=== PATIENT | male | born 1990 | race Caucasian/White ===

== ENCOUNTER 2016-11-06 09:40 | Emergency (ER) | payer MEDICAID ==
[2016-11-06 10:10] VITALS: BP 119/73; PULSE 84; RESP 19; TEMP 98; O2SAT 100
--- NOTE | 2016-11-06 10:39 | ED PDOC ---
HPI: Skin/Bite Injury Time Seen by Provider: 11/06/16 10:18 Chief Complaint (Nursing): Abnormal Skin Integrity Chief Complaint (Provider): Abnormal Skin Integrity History Per: Patient History/Exam Limitations: no limitations Onset/Duration Of Symptoms: Days (x2 months) Current Symptoms Are (Timing): Still Present Additional Complaint(s): Shaid Medina is a 26 year old male with a past medical history of diabetes, hypertension, and hypercholesterolemia presenting to the ED for an evaluation of an itchy rash on his arms, abdomen, and back occurring for 2 months prior to arrival. He states he has temporary improvement with topical creams, but then symptoms returns. He denies fever or shortness of breath. PMD: Marce Sabillon MD Past Medical History Reviewed: Historical Data, Nursing Documentation, Vital Signs Vital Signs: Last Vital Signs Temp 98.0 F 11/06/16 10:07 Pulse 84 11/06/16 10:07 Resp 19 11/06/16 10:07 BP 119/73 11/06/16 10:07 Pulse Ox 100 11/06/16 10:40 - Medical History PMH: Asthma, Depression, Diabetes (type 1), Gastritis, HTN, Hypercholesterolemia , Migraine, Sexually Transmitted Disease (+ Herpes on bld test) Denies: HIV, Chronic Kidney Disease - Family History Family History: States: Unknown Family Hx - Social History Current smoker - smoking cessation education provided: No Ex-Smoker (has not smoked in the last 12 months): No Alcohol: Social Drugs: Denies - Home Medications Home Medications: Ambulatory Orders Medication Instructions Recorded Insulin Detemir [Levemir] 40 unit SC HS 01/31/14 Insulin Lispro [humALOG] 35 units SC DAILY 01/31/14 Lisinopril 5 mg PO DAILY 01/31/14 Simvastatin 20 mg PO DAILY 01/31/14 Cetirizine HCl [Zyrtec] 10 mg PO DAILY #10 capsule 11/06/16 predniSONE [predniSONE Tab] 10 mg PO TID #15 tab 11/06/16 - Allergies Allergies/Adverse Reactions: Allergies Allergy/AdvReac Type Severity Reaction Status Date / Time No Known Allergies Allergy Verified 01/31/14 18:54 Review of Systems ROS Statement: Except As Marked, All Systems Reviewed And Found Negative Constitutional: Negative for: Fever Respiratory: Negative for: Shortness of Breath Skin: Positive for: Rash (itchy rash to arms, abdomen, and back) Physical Exam - Reviewed Nursing Documentation Reviewed: Yes Vital Signs Reviewed: Yes - Physical Exam Appears: Positive for: Non-toxic, No Acute Distress Head Exam: Positive for: ATRAUMATIC, NORMOCEPHALIC Skin: Positive for: Rash (maculopapular rash involving arms and lower abdomen) Cardiovascular/Chest: Positive for: Regular Rate, Rhythm, Chest Non Tender. Negative for: Murmur Respiratory: Positive for: Normal Breath Sounds. Negative for: Respiratory Distress Gastrointestinal/Abdominal: Positive for: Normal Exam, Soft. Negative for: Tenderness Extremity: Positive for: Normal ROM. Negative for: Deformity Neurologic/Psych: Positive for: Alert, Oriented (x3) - Laboratory Results Result Diagrams: 11/06/16 10:45 11/06/16 10:45 - ECG O2 Sat by Pulse Oximetry: 100 (RA) Pulse Ox Interpretation: Normal Medical Decision Making Medical Decision Making: Time: 10:18 Impression: Rash Plan: * CMP * CBC (with differential) * HumuLIN R 6 Units SC * NS 0.9% 1,000 ml IV 250 mls/hr * Reevaluation Scribe Attestation: Documented by Shalini Odonnell, acting as a scribe for Ludwin Harvey MD. Provider Scribe Attestation: All medical record entries made by the Scribe were at my direction and personally dictated by me. I have reviewed the chart and agree that the record accurately reflects my personal performance of the history, physical exam, medical decision making, and the department course for this patient. I have also personally directed, reviewed, and agree with the discharge instructions and disposition. Disposition - Clinical Impression Clinical Impression: Dermatitis, Uncontrolled diabetes mellitus type 1 without complications - Patient ED Disposition Is Patient to be Admitted: No Counseled Patient/Family Regarding: Studies Performed, Diagnosis, Need For Followup, Rx Given - Disposition Referrals: [facility] [Outside] Disposition: Routine/Home Disposition Time: 14:05 Condition: FAIR Prescriptions: Cetirizine HCl [Zyrtec] 10 mg PO DAILY #10 capsule predniSONE [predniSONE Tab] 10 mg PO TID #15 tab Instructions: Dermatitis (ED) Forms: [facility] ([place])
[2016-11-06] MEDS ORDERED: Insulin Regular 100 units/ml ONE (10:41)
[2016-11-06] MEDS: Sodium Chloride 0.9% 1,000 ML IV STA (10:48)
[2016-11-06] MEDS: Insulin Regular 100 units/ml SC STA (10:48)
[2016-11-06 11:05] LABS: BASO % 0.7 % (0.0-2.0); EOS # 0.3 K/uL (0.0-0.7); EOS % 7.3 % (0.0-4.0); HEMATOCRIT 41.3 % (35.0-51.0); LYMPH # 1.5 K/uL (1.0-4.3); LYMPH % 33.8 % (20.0-40.0); MEAN CELL VOLUME 84.7 fl (80.0-94.0); MEAN CORPUSCULAR HEMOGLOBIN 28.9 pg (27.0-31.0); MEAN CORPUSCULAR HGB CONC 34.1 g/dL (33.0-37.0); MEAN PLATELET VOLUME 8.9 fl (7.2-11.7); MONO # 0.6 K/uL (0.0-0.8); MONO % 14.7 % (0.0-10.0); NEUT # 1.9 K/uL (1.8-7.0); NEUT % 43.5 % (50.0-75.0); NRBC % 0.1 % (0.0-0.0); RED CELL DISTRIBUTION WIDTH 13.8 % (11.5-14.5); WHITE BLOOD COUNT 4.4 K/uL (4.8-10.8)
[2016-11-06 11:15] LABS: ALB/GLOB RATIO 1.7 (1.0-2.1); ALKALINE PHOSPHATASE 67 U/L (38-126); ALT/SGPT 43 U/L (21-72); AST/SGOT 31 U/L (17-59); BILIRUBIN,TOTAL 0.6 mg/dl (0.2-1.3); BLOOD UREA NITROGEN 16 mg/dl (9-20); CALCIUM 9.8 mg/dL (8.4-10.2); CARBON DIOXIDE 26 mmol/L (22-30); CHLORIDE 96 mmol/L (98-107); GFR AFRICAN-AMERICAN > 60; POTASSIUM 4.4 MMOL/L (3.6-5.0); SODIUM 133 mmol/l (132-148); TOTAL PROTEIN 7.2 G/DL (6.3-8.2)
[2016-11-06 11:24] LABS: GLUCOSE,RANDOM 514 mg/dL (75-110)
[2016-11-06] MEDS: Insulin Regular 100 units/ml IV STA (12:10)
== END 2016-11-06 14:21 | disposition home or self-care (01) ==
LOC: H.ER 09:40
DX: L30.9 Dermatitis, unspecified (principal); E10.65 Type 1 diabetes mellitus with hyperglycemia; E78.00 Pure hypercholesterolemia, unspecified; F32.9 Major depressive disorder, single episode, unspecified; I10 Essential (primary) hypertension; Z79.4 Long term (current) use of insulin
CPT/HCPCS: 80053; 82948; 85025; 96372; 99282; J7040